=== PATIENT | female | born 1980 | race African-American/Black ===

== ENCOUNTER 2016-08-17 10:26 | Inpatient (IN) | payer OTHER ==
[~2016-08-17] VITALS: Ht 162.6 cm; Wt 76.0 kg
[~2016-08-17 10:26] MED LIST: CEPH-443 PO; METO5TAB58 PO; PREN1TAB79 PO
[2016-08-17 10:36] VITALS: BP 136/78; Ht 162.6 cm; Wt 76.0 kg
[2016-08-17] MEDS ORDERED: OXYTOCIN 30 UNITS/LR 500 ML IV PRN ×3 (11:00→21:30)
[2016-08-17] MEDS ORDERED: METHYLERGONOVINE 0.2 MG INJ IM PRN ×3 (11:00→21:30)
[2016-08-17] MEDS ORDERED: DEXTROSE 5%-LR 1,000 ML IV PRN (11:00)
[2016-08-17] MEDS ORDERED: CARBOPROST 250 MCG INJ IM PRN ×3 (11:00→21:30)
[2016-08-17] MEDS ORDERED: LIDOCAINE 1% (MPF) 30 ML INJ INJ PRN (11:00)
[2016-08-17] MEDS ORDERED: MISOPROSTOL 200 MCG TAB PR PRN ×4 (11:00→21:30)
[2016-08-17 11:40] LABS: BASOPHILS % 0.2 % (0.0-2.0); EOSINOPHILS % 0.1 % (0.0-7.0); HEMATOCRIT 37.5 % (37.0-47.0); HEMOGLOBIN 12.2 g/dl (12.0-16.0); LYMPHOCYTES # 1.4 10^3/ul (0.8-2.9); LYMPHOCYTES % 24.4 % (15.0-51.0); MEAN CORPUSCULAR HEMOGLOBIN 28.3 pg (29.0-33.0); MEAN CORPUSCULAR HGB CONC 32.5 g/dl (32.0-37.0); MEAN PLATELET VOLUME 9.9 fl (7.4-10.4); MONOCYTE # 0.6 10^3/ul (0.3-0.9); MONOCYTES % 10.3 % (0.0-11.0); NEUTROPHIL # 3.8 10^3/ul (1.6-7.5); PLATELET COUNT 164 10^3/UL (140-440); RED BLOOD COUNT 4.31 10^6/ul (4.20-5.40); RED CELL DISTRIBUTION WIDTH 15.5 % (11.5-14.5); UNCORRECTED WBC 5.8 10^3/ul (4.8-10.8); WHITE BLOOD COUNT 5.8 10^3/ul (4.8-10.8)
[2016-08-17 11:48] LABS: CONDITION 1; LH ANALYZER COMMENTS 1
--- NOTE | 2016-08-17 12:05 | RADRPT ---
PROCEDURE: Obstetrical ultrasound. CLINICAL INDICATION: , evaluation. Pelvic pain. Post dates TECHNIQUE: Transabdominal sonographic images of the pelvis are obtained. COMPARISON: OB ultrasound 03/17/2016 FINDINGS: Single intrauterine gestation. There is a cephalic presentation. Measurements were made in order to determine age. The results are as follows: BPD = 9.08 cm HC = 33.05 cm AC = 36.31 cm FL = 7.60 cm Heart rate = 161 beats per minute The placenta is fundal. There is no evidence for an abruption or placenta previa. Ovaries are not visualized. IMPRESSION: Single intrauterine gestation of approximately 38 weeks 3 days by ultrasound criteria. Estimated weight = 3705 g RPTAT: AADD .Higinio Girard MD, Date Time Electronically viewed and signed by .Higinio Girard MD, on 08/17/2016 12:05 .B/
--- NOTE | 2016-08-17 12:16 | RADRPT ---
PROCEDURE: OB ultrasound for biophysical profile CLINICAL INDICATION: Post dates TECHNIQUE: Multiple sonographic images of the pelvis were obtained. Transabdominal views of the g ravid uterus are available for review. The images were reviewed on a PACS workstation. COMPARISON: None FINDINGS: breathing movement = 2/2 tone = 2/2 motion = 2/2 OPAL = 0/2 OPAL = 4.6 cm Single live intrauterine with cardiac activity of 144 bpm. position is cephal ic. The placenta is fundal. IMPRESSION: 1. Single live intrauterine gestation. 2. Biophysical profile = 6/8, 0/2 for OPAL. 3. Oligohydramnios. OPAL = 4.6 cm. Findings were discussed with the patient's nurse [place] on 08/17/2016 12:08:15 PM. RPTAT: HH .Louisa Rae MD, Date Time Electronically viewed and signed by .Louisa Rae MD, on 08/17/2016 12:16 .G/
[2016-08-17 12:31] LABS: PROTIME 13.2 Sec (12.2-14.2)
[2016-08-17 12:32] LABS: PARTIAL THROMBOPLASTIN TIME 25.7 Sec (25.0-35.0)
[2016-08-17] MEDS ORDERED: LACTATED RINGER'S 1,000 ML IV PRN (13:00)
[2016-08-17] MEDS: LACTATED RINGER'S 1,000 ML IV SCH ×2 (13:24→15:32)
[2016-08-17] MEDS ORDERED: OXYTOCIN 30 UNITS/LR 500 ML IV SCH ×3 (13:30)
[2016-08-17] MEDS ORDERED: CEFAZOLIN 2 GM/50 ML (PMX) 50 ML IV SCH (13:30)
[2016-08-17] MEDS ORDERED: CITRIC ACID/NA CITRATE 30 ML CUP ONE (14:51)
[2016-08-17] MEDS ORDERED: LACTATED RINGER'S 1,000 ML IV ONE (14:51)
[2016-08-17] MEDS ORDERED: FAMOTIDINE 20 MG INJ ONE (14:52)
[2016-08-17] MEDS ORDERED: METOCLOPRAMIDE 10 MG INJ ONE (14:52)
[2016-08-17] MEDS ORDERED: FAMOTIDINE 20 MG INJ IV ONE (15:00)
[2016-08-17] MEDS ORDERED: METOCLOPRAMIDE 10 MG INJ IV ONE (15:00)
[2016-08-17] MEDS ORDERED: CITRIC ACID/NA CITRATE 30 ML CUP PO ONE (15:00)
[2016-08-17] MEDS ORDERED: morphine SULFATE/PF (10 MG/10 ML) INJ ONE (15:48)
[2016-08-17] MEDS ORDERED: FENTAnyl 50 MCG/ML VIAL ONE (15:48)
[2016-08-17] MEDS ORDERED: EPHEDrine SULFATE 50 MG/5 ML SYG ONE ×2 (16:19→16:26)
[2016-08-17] MEDS ORDERED: PHENYLephrine (100 MCG/ML) 5ML SYG ONE (16:21)
[2016-08-17] MEDS ORDERED: ONDANSETRON 4 MG INJ ONE (16:35)
[2016-08-17] MEDS ORDERED: OXYTOCIN 30 UNITS/LR 500 ML IV ONE (16:42)
[2016-08-17] MEDS ORDERED: PROCHLORPERAZINE 10 MG INJ IV PRN (17:00)
[2016-08-17] MEDS ORDERED: MEPERIDINE 25 MG INJ IV PRN (17:00)
[2016-08-17] MEDS ORDERED: KETOROLAC 30 MG INJ IV PRN (17:00)
[2016-08-17] MEDS ORDERED: DIPHENHYDRAMINE 50 MG INJ IV PRN (17:00)
[2016-08-17] MEDS ORDERED: FENTAnyl 50 MCG/ML VIAL IV PRN (17:00)
[2016-08-17] MEDS ORDERED: HYDROmorphONE (0.2 MG/ML) 10ML SYG IV PRN (17:00)
[2016-08-17] MEDS ORDERED: ONDANSETRON 4 MG INJ IV PRN (17:00)
--- NOTE | 2016-08-17 17:51 | HP ---
Date/Time of Note Date/Time of Note DATE: 08/17/16 TIME: 17:14 OB - History Hx of Present Free Text/Dictation 35 years old female 3 para [id number] admitted to [facility] at 41 weeks and 1 day for induction of labor pelvic examination on admission several weeks fingertip dilated 40% effaced vertex at - 2 station, before initiating the induction several agreeable deceleration category 2 and 3 noted on the heart tracing the concern of baby tolerating the induction and labor contraction was discussed with the patient and her , declined further trial of induction with regard to the baby,s tolerance to the contraction, requesting delivery by she is being prepared to undergo a primary , complication of especially knowing patient has multiple uterine fibroids the risk of hemorrhage , wound hematoma and infection was discussed and they she would look to proceed with the operation. This patient has been under the care [facility] and her course was not complicated with gestational diabetes -induced hypertension except multiple uterine fibroids MEATCUTTER history menarche at age 12 history of 3 previous pregnancies one spontaneous and one induced Allergies, denies allergy to any known medication Social habit, denies smoking or drinking Family history, unremarkable Review of system. Within normal Physical examination 5 feet 4 168 point Vital signs, temperature 99.2, pulse 88, respiration 20, blood pressure 115/70 Head ears nose and throat negative Neck supple no thyromegaly Lungs clear to P&A Heart, normal sinus rhythm no murmur breast, no abnormal palpable mass no nipple retraction no skin changes no axillary adenopathy Abdomen fundal height 38 cm from symphysis pubis with multiple fibroid felt on palpation of the abdomen heart rate category 2 and 3 Pelvic examination, cervix fingertip 40% effacement vertex at -2 station Extremities no edema no varicosities Impression, intrauterine at 41 week and 1 day category 2 and 3 heart tracing not suitable for induction of labor all the risks and complications of the procedure was discussed with the patient on her including hemorrhage bowel bladder injury infection wound hematoma and she is willing to go ahead with the procedure. Chief Complaint: Category 2 and 3 heart tracing, Estimated Due Date: Aug 09, 2016 : 3 Para: 0 Spontaneous : 1 Therapeutic : 1 Care: Good Care Ultrasounds: Normal mid trimester US Obstetrical Complications: Other (Multiple uterine fibroids) Medical Complications: None Past Family/Social History * Past Medical, Surgical, Family and Obstetric Histories reviewed from chart. Rubella: immune RPR/VDRL: Negative GBS Status: Negative HBsAG: Negative OB Admission Exam Vital Signs Vital Signs Vital Signs Date Time Temp Pulse Resp B/P Pulse Ox O2 Delivery O2 Flow Rate FiO2 08/17/16 10:36 98.0 136/78 Room Air Physical Exam HEENT: WNL Heart: Rhythm Normal Abdomen: WNL Extremities: Normal Reflexes: Normal Cervical Dilatation: Fingertip Effacement: 25% Station: -2 Membranes: Intact Heart Rate: 120's Accelerations: Accelerations Present Decelerations: Variable Decelerations Varibility: Moderate Contractions on Admission: None Last 72 hours Lab Results CBC & BMP 08/17/16 11:10 JORDON ALFRED MD Aug 17, 2016 17:51
--- NOTE | 2016-08-17 19:30 | DELSUM ---
Delivery Summary A-C Datetime Report Generated by CPN: 08/17/2016 19:30 DELIVERY PERSONNEL Industrial Boilermaker: Badgett, Tammy MATERNAL INFORMATION Medications in Delivery: pitocin 30units, SEE ANEST RECORD Estimated Blood Loss (ml): 600 Placenta Cultured: No Maternal Complications: Other RN Comments: veriables, post dates, oligo, LABOR SUMMARY EDC: 08/09/2016 00:00 No. Babies in Womb: 1 Attempted: No Labor Anesthesia: None LABOR INFORMATION Reason for Induction: Not Applicable Reason for Induction- Other: UNABLE TO INDUCE DUE TO NON REASSURING TRACING Oxytocin: N/A Group B Beta Strep: Negative Antibiotics # of Doses: 1x Antibiotics Time of Last Dose: 08/17/2016 15:56 Steroids Given: None Reason Steroids Not Administered: Not Applicable MEMBRANES Membranes Rupture Method: Artificial Rupture of Membranes: 08/17/2016 16:27 Length of Rupture (hr): 0.05 Amniotic Fluid Color: Clear Amniotic Fluid Amount: Scant Amniotic Fluid Odor: None STAGES OF LABOR Stage 3 hr: 0 Stage 3 min: 1 CSECTION DELIVERY Primary Indication: Nonreassuring Stat Secondary Indication: Nonreassuring Stat CSection Urgency: Elective CSection Incidence: Primary Labor: No Labor Elective: Elective CSection Incision: Lower Uterine Transverse BABY A INFORMATION Infant Delivery Date/Time: 08/17/2016 16:30 Method of Delivery: Born in Route : No : N/A Forceps: N/A Vacuum Extraction: N/A Shoulder Dystocia : No SHOULDER DYSTOCIA BABY A Infant Delivery Date/Time: 08/17/2016 16:30 PRESENTATION/POSITION BABY A Presentation: Cephalic Cephalic Presentation: Vertex Vertex Position: Left Occipital Anterior Breech Presentation: N/A PLACENTA INFORMATION BABY A Placenta Delivery Time : 08/17/2016 16:31 Placenta Method of Delivery: Manual Removal Placenta Status: Delivered SCORES BABY A Heart Rate 1 min: >100 bpm Resp Effort 1 min: Good Cry Reflex Irritability 1 min: Cough/Sneeze/Pulls Away Muscle Tone 1 min: Active Motion Color 1 min: Blue/Pale Resuscitation Effort 1 min: Tactile Stimulation; Oxygen SCORE 1 MIN: 8 Heart Rate 5 min: >100 bpm Resp Effort 5 min: Good Cry Reflex Irritability 5 min: Cough/Sneeze/Pulls Away Muscle Tone 5 min: Active Motion Color 5 min: Body [place], Extremit Blue Resuscitation Effort 5 min: Tactile Stimulation; Oxygen SCORE 5 MIN: 9 INFORMATION BABY A Gestational Age at Delivery: 41.1 Gestational Status: Late Term- 41- 41.6 Weeks Infant Outcome : Liveborn Condition : Stable Infant Sex: Male IDENTIFICATION/MEDS BABY A ID Band Number: [id number] ID Band Location: Right Leg; Left Arm Sensor Applied: Yes Sensor Number: [id number] Sensor Location : Cord Clamp Vitamin K Given : Not Given Erythromycin Given: Not Given WEIGHT/LENGTH BABY A Birthweight (gm): 3560 Weight (lb): 7 Weight (oz): 14 Infant Length (in): 20.00 Infant Length (cm): 50.80 CORD INFORMATION BABY A No. Cord Vessels: 3 Nuchal Cord : N/A Cord Blood Taken: Yes Infant Suction: Mouth; Nose ASSESSMENT BABY A Infant Complications: Multiple Late Decels; Oligohydramnios; Other Complications- Other: POSTDATES, slow to pink up Physical Findings at Delivery: Within Normal Limits Infant Respirations: Appears Normal Bin Operator/ALS Called : Yes Care By: Olimpia ROMAN RN Transferred To: Remains with Mother
[2016-08-17 20:35] VITALS: BP 140/76; PULSE 62; RESP 20
[2016-08-17] MEDS ORDERED: OXYCODONE/ACETAMINOPHEN (5/325) TAB PO PRN (21:30)
[2016-08-17] MEDS ORDERED: ACETAMINOPHEN/CODEINE #3 TAB PO PRN ×2 (21:30)
[2016-08-17] MEDS ORDERED: CEFAZOLIN 1 GM/50 ML (PMX) 50 ML IVPB SCH (21:30)
[2016-08-17] MEDS ORDERED: LANOLIN 7 GM TUBE TOP PRN (21:30)
[2016-08-17] MEDS: OXYTOCIN 30 UNITS/LR 500 ML IV SCH (22:41)
[2016-08-17 23:50] VITALS: BP 128/66; PULSE 70; RESP 20
[2016-08-18] MEDS ORDERED: DIPHENHYDRAMINE 50 MG INJ IV PRN (02:00)
[2016-08-18] MEDS ORDERED: NALOXONE (0.4 MG/ML) INJ IV PRN (02:00)
[2016-08-18] MEDS ORDERED: ONDANSETRON 4 MG INJ IV PRN (02:00)
[2016-08-18] MEDS: OXYTOCIN 30 UNITS/LR 500 ML IV SCH ×2 (03:17→08:42)
[2016-08-18 04:30] VITALS: BP 115/59; PULSE 77; RESP 20
--- NOTE | 2016-08-18 05:29 | OPR ---
DATE OF OPERATION: 08/17/2016 PREOPERATIVE DIAGNOSES: 1. Intrauterine at 41 weeks 1 day gestation. 2. The patient was originally admitted for induction of labor at 41 weeks and 1 day. 3. Multiple variable decelerations, category 2 and 3 prior to initiation of induction. 4. Declined further trial of labor and induction under close observation, requesting operative deli very by section. POSTOPERATIVE DIAGNOSES: 1. Intrauterine at 41 weeks 1 day gestation. 2. The patient was originally admitted for induction of labor at 41 weeks and 1 day. 3. Multiple variable decelerations, category 2 and 3 prior to initiation of induction. 4. Declined further trial of labor and induction under close observation, requesting operative deli very by section. PROCEDURE: Primary transverse low cervical section. SURGEON: Jordon Ramires MD NEON SIGN ERECTOR: Donald Elliott MD ANESTHESIA: Spinal. ANESTHESIOLOGIST: Dr. Lutz. FINDINGS: Live baby boy with the 9 and 9. DETAILS OF THE PROCEDURE: Under satisfactory spinal anesthesia, the patient was prepped and draped and placed in supine position, tilted to the left. Pfannenstiel incision was made, carried through the subcutaneous tissue. Bleeders brought under control with electrocautery. Fascia incised to the length of the incision. Rectus muscle divided in midline. Peritoneum exposed, entered through a t ransverse incision. Exploration of abdomen revealed a gravid uterus, multiple uterine fibroids cove ring the entire fundus of the uterus, and some 3 to 4 cm above the lower segment of the uterus. Ins pection of the tubes and ovaries was within normal. Bladder flap was developed. Transverse incisio n was made in the lower segment of the uterus. Amniotic sac ruptured. Clear amniotic fluid noted. Live baby boy was delivered from unengaged vertex. Nasal oropharyngeal suction was performed. Bab y handed to the team for immediate attention. The patient received 20 units of Pitocin. P lacenta delivered manually intact. Uterine cavity cleaned with wet sponge and drainage established. Uterus closed in 2 layers using Monocryl #1 in continuous fashion. Peritoneal cavity irrigated wi th warm saline. Sponge, needle, and instrument reported to be correct. Abdominal peritoneum closed with 2-0 chromic catgut continuously. Rectus muscle approximated with few interrupted 2-0 chromic catgut. Fascia closed with #1 PDS in a continuous fashion. Subcutaneous tissue approximated with f ew interrupted 2-0 chromic catgut. Skin closed with jamila. Estimated blood loss 600 to 700 mL. Urine bag contained 200 mL of clear urine. The patient tolerated procedure well, transferred to rec overy room in a good condition. Dictated By: JORDON CASTANEDA/JORY Conf#: [id number] DID#: [id number]
[2016-08-18] MEDS ORDERED: LACTATED RINGER'S 1,000 ML IV SCH (08:00)
[2016-08-18 08:25] VITALS: BP 110/55; PULSE 80; RESP 18
[2016-08-18 08:28] LABS: BASOPHILS % 0.2 % (0.0-2.0); HEMATOCRIT 32.6 % (37.0-47.0); HEMOGLOBIN 10.8 g/dl (12.0-16.0); LYMPHOCYTES # 1.1 10^3/ul (0.8-2.9); LYMPHOCYTES % 16.4 % (15.0-51.0); MEAN CORPUSCULAR HEMOGLOBIN 29.1 pg (29.0-33.0); MEAN CORPUSCULAR HGB CONC 33.2 g/dl (32.0-37.0); MEAN CORPUSCULAR VOLUME 87.6 fl (82.0-101.0); MEAN PLATELET VOLUME 9.3 fl (7.4-10.4); MONOCYTE # 0.5 10^3/ul (0.3-0.9); NEUTROPHIL # 4.9 10^3/ul (1.6-7.5); NEUTROPHILS % 75.4 % (39.0-77.0); PLATELET COUNT 127 10^3/UL (140-440); RED BLOOD COUNT 3.72 10^6/ul (4.20-5.40); RED CELL DISTRIBUTION WIDTH 15.3 % (11.5-14.5); UNCORRECTED WBC 6.5 10^3/ul (4.8-10.8); WHITE BLOOD COUNT 6.5 10^3/ul (4.8-10.8)
[2016-08-18 08:42] LABS: CONDITION 1; LH ANALYZER COMMENTS 1
[2016-08-18] MEDS: SENNA/DOCUSATE NA (8.6MG/50MG) TAB PO SCH ×2 (08:50→21:50)
--- NOTE | 2016-08-18 11:38 | PN ---
Date/Time of Note Date/Time of Note DATE: 08/18/16 TIME: 11:37 OB Subjective Subjective Subjective Post day 1 Afebrile vital sign stable abdomen soft mildly distended bowel sounds present incision dry, lochia normal extremity normal ambulation encouraged JORDON ALFRED MD Aug 18, 2016 11:38
[2016-08-18 12:10] VITALS: BP 108/54; PULSE 77; RESP 16
[2016-08-18] MEDS ORDERED: KETOROLAC 30 MG INJ IV PRN (12:30)
[2016-08-18 16:21] VITALS: BP 97/53; PULSE 77; RESP 17
[2016-08-18] MEDS: IBUPROFEN 600 MG TAB PO SCH (18:36)
[2016-08-18 19:30] VITALS: BP 119/68; PULSE 74; RESP 20
[2016-08-18] MEDS: OXYCODONE/ACETAMINOPHEN (5/325) TAB PO PRN (21:50)
[2016-08-19] MEDS: IBUPROFEN 600 MG TAB PO SCH ×4 (00:16→18:05)
[2016-08-19 04:00] VITALS: BP 100/61; PULSE 69; RESP 19
[2016-08-19 08:00] VITALS: BP 126/71; PULSE 71; RESP 18
[2016-08-19] MEDS: SENNA/DOCUSATE NA (8.6MG/50MG) TAB PO SCH ×2 (09:14→21:00)
[2016-08-19 15:43] VITALS: BP 110/70; PULSE 72; RESP 18
[2016-08-19] MEDS: OXYCODONE/ACETAMINOPHEN (5/325) TAB PO PRN (16:40)
--- NOTE | 2016-08-19 17:13 | PN ---
Date/Time of Note Date/Time of Note DATE: 08/19/16 TIME: 17:11 OB Subjective Subjective Subjective Postoperative day 2 Vital sign stable, afebrile, abdomen soft, incision dry, bowel sound present no BM uterus firm lochia normal ambulation recommended JORDON ALFRED MD Aug 19, 2016 17:13
--- NOTE | 2016-08-19 17:25 | PN ---
Date/Time of Note Date/Time of Note DATE: 08/19/16 TIME: 17:21 OB Subjective Subjective Subjective Post day 2 Vital sign stable, afebrile, abdomen soft, uterus firm, lochia normal, extremity normal. Bowel sounds present no bowel movement enema recommended JORDON ALFRED MD Aug 19, 2016 17:25
[2016-08-19] MEDS ORDERED: NA PHOSPHATE/BIPHOS 133 ML ENEMA PR ONE (17:30)
[2016-08-19] MEDS ORDERED: PIPER-TAZO 3.375 GM IV (PMX) 100 ML IVPB SCH (18:30)
[2016-08-19 20:00] VITALS: BP 114/66; PULSE 66; RESP 18
[2016-08-20] MEDS: IBUPROFEN 600 MG TAB PO SCH ×3 (00:21→12:05)
[2016-08-20 03:55] VITALS: BP 121/64; PULSE 64; RESP 18
[2016-08-20 08:00] VITALS: BP 105/52; PULSE 88; RESP 18
[2016-08-20] MEDS ORDERED: DIPHTH/TET/ACEL PERTUSS (ADULT) 0.5 ML VIAL IM* ONE (09:00)
[2016-08-20] MEDS: SENNA/DOCUSATE NA (8.6MG/50MG) TAB PO SCH (09:58)
[2016-08-20] MEDS ORDERED: NA PHOSPHATE/BIPHOS 133 ML ENEMA PR ONE (12:00)
--- NOTE | 2016-08-20 13:16 | PD.PPDC ---
MOLD SHEET CLEANER Discharge Instruction Condition Patient Condition: Good Diet Diet: Resume Regular Diet Activity/Restrictions Activity: Normal Activity May Shower Restrictions: No Exercising No Lifting No Driving No Sexual Activity Nothing in the Vagina No [place] 7 No Tampons, douche Follow-up Follow-up with Physician: 1, 4, Day/Days Provider Information: Appointment clinic in 1 week to discontinue jamila Return to clinic for OXYHYDROGEN WELDER Instructions: Fever greater than 101 Chills Worsening abdominal pain Excessive Vaginal Bleeding More than 2 pads per hour Unable to tolerate diet OB Instructions: Breast Tenderness Blurried Vision Surgical Instructions: Incisional Drainage Incisional Redness JORDON ALFRED MD Aug 20, 2016 13:16
--- NOTE | 2016-08-20 13:19 | DS ---
Date/Time of Note Date/Time of Note DATE: 08/20/16 TIME: 13:16 Obstetrical Discharge Record Final Diagnosis Final Diagnosis: Term delivered Section Section: Primary Complications Other (Nonreassuring heart tracing) Condition on Discharge Physical Assessment Last Vitals: Vital signs stable afebrile abdomen soft incision dry patient had normal bowel movement good bowel sounds discharged home with appointment in 1 week to be seen at the clinic to discontinue jamila Voiding: Yes Bowel Movement: Yes Fundus: Firm Abdomen and Incision: Dry and clean Calf Tenderness: No Patient Condition: Good JORDON ALFRED MD Aug 20, 2016 13:19
[2016-08-20 16:27] VITALS: BP 138/81; PULSE 77; RESP 18
== END 2016-08-20 17:30 | disposition home or self-care (01) | DRG 766 ==
LOC: L-D 10:26 → OBT 10:26 → L-D 11:26 → PP1 20:33
PROVIDERS: ADMIT Obstetrics & Gynecology; ATTEND Obstetrics & Gynecology
PROC: 10D00Z1 Extraction of Products of Conception, Low, Open Approach (ICD-10-PCS; principal; 2016-08-17 15:45)
DX: O76 Abnormality in fetal heart rate and rhythm complicating labor and delivery (principal); O48.0 Post-term pregnancy; Z3A.41 41 weeks gestation of pregnancy; Z37.0 Single live birth
CPT/HCPCS: 76815; 76818; 85025; 85610; 85730; 86592; 86850; 86900; 86901; 86920; 87340; 90715; 94760; 99464; G0463; J0690; J1885; J2274; J2370; J2405; J2543; J2590; J2765; J3010; J7120

== ENCOUNTER 2016-08-27 14:23 | Emergency (ER) | payer OTHER ==
[~2016-08-27] VITALS: Wt 70.0 kg
[~2016-08-27 14:23] MED LIST changes: -METO5TAB58 PO
--- NOTE | 2016-08-27 15:11 | ERD ---
ER Documentation Chief Complaint Date/Time DATE: 08/27/16 Chief Complaint Encounter for staple removal HPI The patient is a 35-year-old female who presents to the Emergency Department requesting staple removal. The patient had a delivery on 08/17/[address] Ramires at [facility]. Her overlying skin layers were closed with jamila at that time. She notes that the site has been healing well, and was even evaluated at [place] [facility] on Friday night for wound check, and was noted to be healing appropriately. She states that she was supposed to have her jamila taken out, but because her child has been at [facility], she has not had time to make the appointment to do so. She denies any fevers, chills, nausea or vomiting. Denies any redness, swelling, drainage or bleeding to the site of the wound. Denies any other complaints at this time. ROS All systems reviewed and are negative except as per history of present illness. Medications Home Meds Active Scripts Cephalexin* (Keflex*) 500 Mg Capsule, 500 MG PO BID for 5 Days, CAP Prov:RANCHO SCOTT PA-C 03/17/16 Vit W-Ca,Fe,FA(<1 mg) ( Vitamins) 1 Each Tablet, 1 EACH PO DAILY, #100 TAB Prov:ALEX MONTALVO DO 01/06/16 Allergies Allergies: Coded Allergies: No Known Drug Allergies (Verified Allergy, Unknown, 08/17/16) PMhx/Soc History of Surgery: Yes (uterine surgey ( removal of a cyst)) Anesthesia Reaction: No Hx Neurological Disorder: No Hx Respiratory Disorders: No Hx Cardiac Disorders: No Hx Psychiatric Problems: No Hx Miscellaneous Medical Probl: No Hx Alcohol Use: No Hx Substance Use: No Hx Tobacco Use: No Physical Exam Vitals Vital Signs Date Time Temp Pulse Resp B/P Pulse Ox O2 Delivery O2 Flow Rate FiO2 08/27/16 14:44 98.8 63 21 165/81 100 Physical Exam Const: Well-developed, well-nourished, in no acute distress. Head: Normocephalic. Atraumatic Eyes: Normal Conjunctiva ENT: Normal External Ears, Nose and Mouth. Neck: Supple. Resp: Clear to auscultation bilaterally Cardio: Regular rate and rhythm, no murmurs Abd: Soft, non tender, non distended. Normal bowel sounds Skin: section wound well-approximated and well-healed, with no surrounding erythema, warmth, tenderness or swelling. No bleeding or drainage. 16 jamila overlying wound with no significant granulation tissue present. Ext: No clubbing, cyanosis, or edema. Neur: Awake and alert Psych: Cooperative. Procedures/MDM CONSULTATION: CONCRETE FENCE BUILDER on-call, Dr. Segura: Discussed patient case and presentation. Recommends removal of jamila in ED and placement of steri- strips. PROCEDURE NOTE: Staple Removal PROCEDURE: Removal of previously placed jamila DESCRIPTION OF REPAIR: The wound demonstrates no evidence of infection with adequate tensile strength at the wound margins at this time to warrant staple removal. [place] were removed individually using a standard staple remover, with a total of 16 jamila removed. Re-examination of the wound following the procedure reveals no evidence of any retained foreign bodies and no dehiscence. Steri-strips applied. The patient tolerated the procedure well without complications. Standard post- procedure care was explained and return precautions were given. This is a 35-year-old female presenting to the Emergency Department for for removal of previously placed sutures to her lower abdomen, over the site of her wound. The patient had no significant acute abnormalities on physical examination, and vital signs were stable. She had good wound closure and good wound approximation, with no evidence of dehiscence. The wound is clean, dry and intact with no evidence of purulent drainage, bleeding or infection. Sutures were removed with no present complications. At this time, the patient is in stable condition and therefore can be discharged home with strict return precautions for signs of deteriorating or worsening condition, the development of any neurovascular deficits, erythema, drainage, infection, fevers, or any other concerning symptoms. The patient is instructed to follow up with their primary care provider for reevaluation and further management within 2 to 3 days, or to return to the ER sooner for any new or worsening symptoms. I shared my medical decision making and plan with the patient and they verbally understand and agree with the plan for further observation and care as an outpatient. At the time of discharge all questions were answered. Departure Diagnosis: Primary Impression: Encounter for removal of jamila Condition: Stable Patient Instructions: Staple Removal, No Complication Additional Instructions: Call your primary care doctor TOMORROW for an appointment during the next 2-3 days.See the doctor sooner or return here if your condition worsens before your appointment time. KIMBERLYN SEGURA PA-C Aug 27, 2016 15:11
== END 2016-08-27 15:11 | disposition home or self-care (01) ==
LOC: FTE 14:23 → E/R 15:11
DX: Z48.02 Encounter for removal of sutures (principal)
CPT/HCPCS: 99281